=== PATIENT | female | born 1945 | race Caucasian/White ===

== ENCOUNTER 2018-05-24 21:30 | Emergency (ER) | payer MEDICARE, BC ==
--- OUTSIDE RECORDS SUMMARY | 2018-05-24 21:35 | XMS REPORT ---
:1945 External Reference #:[id number] Author Organization [facility] Address [address] [place] [address] [place] [address] Phone [phone] Care Team Providers Name Role Phone Mike Gates MD Primary Care Physician Unavailable Payers Type Date Identification Numbers Payment Provider Subscriber Medicare Primary Policy Number: [id number] Medicare Deepika Dinero PayID: [id number] [address] [place] [address] [facility] Policy Number: [id number] [facility] Deepika Dinero PayID: [id number] [address] [place] [address] Problems Date Description Provider Status Onset: 07/03/2012 Wrist joint pain Juan Che M.D. 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 Dog at home, no other pets. Lots of ticks on dog. Allergies, Adverse Reactions, Alerts Date Description Reaction Status Severity Comments 06/30/2012 Aspirin active 06/30/2012 Bactrim active 06/30/2012 Macrobid active 06/30/2012 Tetracyclines & Related active 06/30/2012 Macadamia Nuts active Medications Medication Date Status Form Strength Qnty SIG Indications Ordering Provider Evening [place] 0 Active Capsules 500mg prn Unknown Oil 000 Cod Liver Oil 0 Active Capsules 1 po qd Unknown 000 D3 0 Active Capsules 400Unit 1 every Unknown 000 day Multivitamins 0 Active Capsules 30caps 1 capsule Unknown 000 daily Restasis 00/00/0 Active Emulsion 0.05% 2units one gtts Unknown 000 ou bid Pataday Active Solution 0.2% 2.500m instill Unknown 000 l one drop into each eye daily Vital Signs Date Vital Result Comment 05/12/2018 Height 62.5 inches 5'2.50" Heart Rate 76 /min BP Systolic 100 mmHg BP Diastolic 64 mmHg Respiratory Rate 16 /min Pain Level 4 05/30/2017 Height 62.5 inches 5'2.50" Weight 125.00 lb Respiratory Rate 16 /min Pain Level 0 BMI (Body Mass Index) 22.5 kg/m2 05/29/2017 Height 62.5 inches 5'2.50" Weight 125.00 lb BP Systolic 122 mmHg BP Diastolic 78 mmHg Respiratory Rate 18 /min Body Temperature 98.2 F Pain Level 4 BMI (Body Mass Index) 22.5 kg/m2 03/24/2014 Height 62.5 inches 5'2.50" Weight 128.00 lb Heart Rate 75 /min BP Systolic 105 mmHg BP Diastolic 85 mmHg BMI (Body Mass Index) 23.0 kg/m2 07/03/2012 Weight 122.00 lb Heart Rate 84 /min BP Systolic 108 mmHg BP Diastolic 80 mmHg Respiratory Rate 16 /min Body Temperature 96.9 F Results Test Date Test Result H/L Range Note Urinalysis 11/26/2012 Urine Color Yellow Urine Appearance Clear Urine Specific [place] 1.010 1.010-1.030 Urine Esterase 2+ Negative Urine Nitrate Negative Negative Urine Urobilinogen Negative E.U./dL Negative Urine Protein Negative mg/dL Negative Urine pH 6.5 5-9 Urine Blood Negative Negative Urine Ketones Negative mg/dL Negative Urine Bilirubin Negative Negative Urine Glucose Negative mg/dL Negative Urine Microscopic 11/26/2012 Urine WBC 1+ (<10 /hpf) None Seen Urine RBC 1+ (<3 /hpf) None Seen Urine Epithelial Cells 1+ Squamous /hpf None Seen Urine Culture And Sensitivities 11/26/2012 Urine Culture (SEE NOTE) 1 1 RUN DATE: 11/28/12 [facility] LAB LIVE PAGE 1 RUN TIME: [address] [place] [id number] Specimen Inquiry Name: DEEPIKA DINERO : [address]: Anni Villanueva DO Acct: [id number] Unit: [id number] AGE: 67 Location: ED Re11/26/12 SEX: F Status: DEP ER SPEC: [id number] CHRISTINA: 11/26/12-13[address] [facility] [address]: Anni Villanueva DO REQ: [id number] RECD: 11/26/12 STATUS: KUN VASQUEZ DR: Macario Wolf MD _ SOURCE: URINE SPDESC: ORDERED: Urine Culture Procedure Result Verified Site Urine Culture Final 11/28/12- 930 ML Organism 1 NORMAL ALEJANDRO [place] Count 75-100,000 (Many) CFU/ML END OF REPORT * ML=Testing performed at Main Lab DEPARTMENT OF PATHOLOGY, [address] [place] [address] Jasiel Camargo M.D. Director [facility] Permit #[id number] Procedures Description No Information Encounters Type Date Location Provider CPT E/M Dx Office Visit 05/12/2018 [facility] [place] [address] M18.11 1:00p C.M.A. M18.12 M75.41 Office Visit 05/05/2018 11:30a [facility] [place] [address] B36.0 B07.8 L21.8 Office Visit 05/30/2017 10:30a [facility] [place] [address] M19.042 C.M.A. S63.602A M18.12 Office Visit 05/29/2017 2:30p [facility] [place] [address] M25.521 C.M.A. M19.042 S53.401A Office Visit 03/24/2014 1:15p [facility] [address] 735.0 C.M.A. M.D. Office Visit 07/03/2012 [facility] [address] 719.43 Infectious Diseases Shruthi Che Plan of Care 05/12/2018 - [facility] MDM18.11 Unil primary osteoarth of first carpometacarp joint, r handM18.12 Unil primary osteoarth of first carpometacarp joint, l handM75.41 Impingement syndrome of right shoulderNew Therapy:Physical TherapyFollow up:Follow up: 6 weeks
[2018-05-24 21:43] VITALS: BP 131/70
[2018-05-24] MEDS ORDERED: Ciprofloxacin TAB* 250 MG PO ONE (22:17)
--- NOTE | 2018-05-24 22:24 | UC ---
Complaint Female HPI - HPI Summary HPI Summary: 72 yo female on 2 1/2 days of amox for UTI still with some dysuria but decreased no back pain or vomiting here today because of myalgias/chills and ? fever multiple drugs allergies - History Of Current Complaint Chief Complaint: UCGeneralIllness Stated Complaint: BURNING URINATION Time Seen by Provider: 05/24/18 22:02 Hx Obtained From: Patient Hx Last Menstrual Period: post Onset/Duration: Gradual Onset, Lasting Days Timing: Constant Severity Initially: Mild Pain Intensity: 4 Pain Scale Used: 0-10 Numeric Character: Burning Aggravating Factor(s): Urination Alleviating Factor(s): Nothing Associated Signs And Symptoms: Positive: Fever - ? today. Negative: Back Pain, Vaginal Bleeding/Discharge, Vaginal Discharge, Nausea, Vomiting(# Of Episodes =) , Genital Swelling, Genital Blisters, Retained Foregin Body (Specify) - Allergies/Home Medications Allergies/Adverse Reactions: Allergies Allergy/AdvReac Type Severity Reaction Status Date / Time aspirin Allergy Runny Nose Verified 05/24/18 21:39 nitrofurantoin Allergy Rash Verified 05/24/18 21:39 [From Macrobid] sulfamethoxazole Allergy Rash Verified 05/24/18 21:39 [From Bactrim] tetracycline Allergy Rash Verified 05/24/18 21:39 trimethoprim [From Bactrim] Allergy Rash Verified 05/24/18 21:39 MACADAMIA NUTS Allergy Intermediate GI Uncoded 04/09/15 20:14 PMH/Surg Hx/FS Hx/Imm Hx Previously Healthy: Yes Other History Of: Negative For: Anticoagulant Therapy - Surgical History Surgical History: None - Family History Known Family History: Positive: Hypertension - Social History Alcohol Use: None Substance Use Type: None Smoking Status (MU): Former Smoker - Immunization History Most Recent Tetanus Shot: 2014 Review of Systems Constitutional: Fever - ?, Chills Skin: Negative Eyes: Negative ENT: Negative Respiratory: Negative Cardiovascular: Negative Gastrointestinal: Negative Genitourinary: Dysuria, Frequency, Urgency Motor: Negative Neurovascular: Negative Musculoskeletal: Negative Neurological: Negative Psychological: Negative Is Patient Immunocompromised?: No All Other Systems Reviewed And Are Negative: Yes Physical Exam Triage Information Reviewed: Yes Appearance: Well-Appearing, No Pain Distress, Well-Nourished Vital Signs: Initial Vital Signs Temp 99.1 F 05/24/18 21:38 Pulse 103 05/24/18 21:38 Resp 16 05/24/18 21:38 BP 131/70 05/24/18 21:38 Pulse Ox 96 05/24/18 21:38 Eye Exam: Normal ENT: Positive: Hearing grossly normal. Negative: Nasal congestion, Nasal drainage, Trismus, Muffled voice, Hoarse voice Neck: Positive: Supple, Nontender Respiratory: Positive: Lungs clear, Normal breath sounds, No respiratory distress, No accessory muscle use Cardiovascular: Positive: RRR, No Murmur, Pulses Normal Abdomen Description: Positive: Nontender, No Organomegaly, Soft. Negative: CVA Tenderness (R), CVA Tenderness (L) Bowel Sounds: Positive: Present Musculoskeletal: Positive: ROM Intact, No Edema Neurological: Positive: Alert Psychological Exam: Normal Skin Exam: Normal Diagnostics - Laboratory Diagnostic Studies Completed/Ordered: +RBC, tr leuk on UA Complaint Female Dx - Course Course Of Treatment: culture result from 05/16 reviewed - Differential Dx/Diagnosis Provider Diagnoses: UTI Discharge - Sign-Out/Discharge Documenting (check all that apply): Patient Departure All imaging exams completed and their final reports reviewed: No Studies - Discharge Plan Condition: Stable Disposition: HOME Prescriptions: Ciprofloxacin HCl [Cipro] 250 mg PO BID #5 tablet Patient Education Materials: Urinary Tract Infection in Women (DC) Referrals: Mike Gates MD [Primary Care Provider] - 3 Days Additional Instructions: recheck sooner for new or worsening symptoms a urine culture is pending - Billing Disposition and Condition Condition: STABLE Disposition: Home
--- NOTE | 2018-05-25 10:33 | UC ---
- Progress Note Progress Note: 05/25/2018 Pt's was Rx ciprofloxacin 250mg PO BID x 3 days and sent to [facility]. Pt called back stating Pharmacy is closed today. Rx for Ciprofloxacin PO sent to [facility] as per Pt's request. Please called back [facility] pharmacy to stop Medication. 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 Thank you Elsie Lee PA-C Discharge - Sign-Out/Discharge Documenting (check all that apply): Patient Departure - D/c home All imaging exams completed and their final reports reviewed: No Studies - Discharge Plan Condition: Stable Disposition: HOME Prescriptions: Ciprofloxacin TAB* [Cipro 250 MG Tab*] 250 mg PO BID #5 tab Patient Education Materials: Urinary Tract Infection in Women (DC) Referrals: Mike Gates MD [Primary Care Provider] - 3 Days Additional Instructions: recheck sooner for new or worsening symptoms a urine culture is pending - Billing Disposition and Condition Condition: STABLE Disposition: Home
--- NOTE | 2018-05-26 19:44 | UC ---
- Progress Note Progress Note: urine cultureL Enterocateriacae - ? contaimination pt on MAcrobid no change Discharge - Sign-Out/Discharge Documenting (check all that apply): Post-Discharge Follow Up All imaging exams completed and their final reports reviewed: No Studies - Discharge Plan Condition: Stable Disposition: HOME Prescriptions: Ciprofloxacin TAB* [Cipro 250 MG Tab*] 250 mg PO BID #5 tab Patient Education Materials: Urinary Tract Infection in Women (DC) Referrals: Mike Gates MD [Primary Care Provider] - 3 Days Additional Instructions: recheck sooner for new or worsening symptoms a urine culture is pending - Billing Disposition and Condition Condition: STABLE Disposition: Home
== END 2018-05-24 22:25 | disposition home or self-care (01) ==
LOC: UCEAST 21:30
DX: N39.0 Urinary tract infection, site not specified (principal); M79.1 Myalgia; R68.83 Chills (without fever); Z88.2 Allergy status to sulfonamides; Z88.6 Allergy status to analgesic agent; Z88.1 Allergy status to other antibiotic agents; Z91.018 Allergy to other foods; Z87.891 Personal history of nicotine dependence
CPT/HCPCS: 81003; 87086; 99212; A9270-GY; G0463

== ENCOUNTER 2023-12-02 07:27 | Inpatient (IN) ==
[2023-12-02] MEDS: Ondansetron 4 mg VIAL 2 MG/ML 2 ml VIAL IV ONE (08:02)
[2023-12-02] MEDS: Lactated Ringers 1000 ml BAG 1,000 ML IV ONE (08:02)
[2023-12-02 08:11] LABS: ABS Lymphocytes 0.2 10^3/uL (1.0-4.8); ABS Monocytes 0.3 10^3/uL (0.0-0.9); ABS Neutrophils 14.4 10^3/uL (1.5-7.6); Eosinophil % 0.1 %; Hematocrit 43.7 % (35-45); Hemoglobin 14.4 g/dL (11.5-14.3); Lymphocyte % 1.6 %; Mean Corpuscular Hemoglobin 30.2 pg (27-33); Mean Corpuscular Volume 91.5 fL (80-97); Mean Platelet Volume 7.5 fL (7.5-11.2); Platelet Count 260 10^3/uL (150-450); Red Blood Count 4.78 10^6/uL (3.63-4.92); Red Cell Distribution Width 13.4 % (12-17)
[2023-12-02 09:05] LABS: ALT 17 U/L (7-52); Albumin 4.4 g/dL (3.2-5.2); Albumin/Globulin Ratio 1.5 (1-3); Alkaline Phosphatase 62 U/L (35-149); Anion Gap 13 mmol/L (2-16); Blood Urea Nitrogen 14 mg/dL (6-24); C Reactive Protein 6.89 mg/L (<8.01); CO2 Carbon Dioxide 30 mmol/L (22-32); Calcium 9.8 mg/dL (8.6-10.3); Chloride 95 mmol/L (101-111); Creatinine, Serum 0.75 mg/dL (0.51-0.95); Globulin 2.9 g/dL (2-4); Glucose 166 mg/dL (70-100); Lipase 15 U/L (11.0-82.0); Sodium 138 mmol/L (135-145); Total Bilirubin 0.6 mg/dL (0.2-1.0); Total Protein 7.3 g/dL (6.4-8.9); eGFR CKD-EPI 81.4 (>60)
[2023-12-02] MEDS: Iohexol 350 (CONTRAST) 500 ML MDV IV ONE (09:40)
[2023-12-02] MEDS: Diatrizoate Meg/Sod(CONTRAST) 30 ML ORAL.SOLN PO ONE (12:16)
[2023-12-02] MEDS: Ondansetron 4 mg VIAL 2 MG/ML 2 ml VIAL IV PRN (14:15)
[2023-12-02] MEDS: Lactated Ringers 1000 ml BAG 1,000 ML IV SCH (15:11)
[2023-12-02] MEDS: Prochlorperazine 5 mg/ml 2 ml VIAL (10 mg) IV PRN (15:12)
[2023-12-03] MEDS: Pantoprazole VIAL 40 MG VIAL IV ONE (00:02)
[2023-12-03 00:39] LABS: Potassium Redraw 3.7 mmol/L (3.5-5.0)
[2023-12-03] MEDS: Lactated Ringers 1000 ml BAG 1,000 ML IV ONE (04:32)
[2023-12-03 07:16] LABS: Calcium 9.4 mg/dL (8.6-10.3); Creatinine, Serum 0.82 mg/dL (0.51-0.95); Potassium 3.6 mmol/L (3.5-5.0); eGFR CKD-EPI 73.2 (>60)
[2023-12-03 07:37] LABS: ABS Lymphocytes 0.4 10^3/uL (1.0-4.8); ABS Monocytes 0.6 10^3/uL (0.0-0.9); ABS Neutrophils 6.8 10^3/uL (1.5-7.6); Hematocrit 43.1 % (35-45); Hemoglobin 14.4 g/dL (11.5-14.3); Lymphocyte % 5.7 %; Mean Corpuscular Hemoglobin 30.5 pg (27-33); Mean Corpuscular Hgb Conc 33.4 g/dL (31-36); Mean Corpuscular Volume 91.4 fL (80-97); Mean Platelet Volume 8.4 fL (7.5-11.2); Platelet Count 249 10^3/uL (150-450); Red Blood Count 4.71 10^6/uL (3.63-4.92); Red Cell Distribution Width 13.7 % (12-17); White Blood Count 7.8 10^3/uL (3.8-11.8)
[2023-12-03] MEDS: Pantoprazole VIAL 40 MG VIAL IV SCH (17:24)
[2023-12-03] MEDS: Lactated Ringers 1000 ml BAG 1,000 ML IV SCH (17:24)
[2023-12-04 06:38] LABS: ABS Basophils 0.1 10^3/uL (0.0-0.1); ABS Lymphocytes 1.2 10^3/uL (1.0-4.8); ABS Monocytes 0.6 10^3/uL (0.0-0.9); ABS Neutrophils 4.7 10^3/uL (1.5-7.6); ABS Nucleated RBC 0.01 10^3/ul; Eosinophil % 0.5 %; Hematocrit 38.6 % (35-45); Hemoglobin 12.9 g/dL (11.5-14.3); Lymphocyte % 18.6 %; Mean Corpuscular Hemoglobin 30.5 pg (27-33); Mean Corpuscular Hgb Conc 33.4 g/dL (31-36); Mean Corpuscular Volume 91.4 fL (80-97); Mean Platelet Volume 7.6 fL (7.5-11.2); Nucleated Red Blood Cells % 0.1 %/100WBC (0.0-0.8); Platelet Count 222 10^3/uL (150-450); Red Blood Count 4.22 10^6/uL (3.63-4.92); Red Cell Distribution Width 13.6 % (12-17); White Blood Count 6.6 10^3/uL (3.8-11.8)
[2023-12-04 06:52] LABS: Calcium 8.6 mg/dL (8.6-10.3); Creatinine, Serum 0.79 mg/dL (0.51-0.95); Potassium 3.4 mmol/L (3.5-5.0); eGFR CKD-EPI 76.5 (>60)
[2023-12-04] MEDS: KCL 20 MEQ/100 ML IVPREMIX 20 MEQ/100 ML BAG IV ONE (09:21)
[2023-12-04 09:53] LABS: Magnesium 2.1 mg/dL (1.9-2.7)
[2023-12-04] MEDS: Oral Rinse (Biotene)(NF) 237 ML or 473 ML ORAL RINSE BTL MT SCH (18:15)
[2023-12-05 10:32] LABS: Calcium 8.4 mg/dL (8.6-10.3); Creatinine, Serum 0.68 mg/dL (0.51-0.95); Magnesium 2.1 mg/dL (1.9-2.7); Potassium 3.7 mmol/L (3.5-5.0); eGFR CKD-EPI 89.1 (>60)
[2023-12-05] MEDS ORDERED: Lidocaine 1% w EPI 1:200,000 SDV 30 ML VIAL ONE (16:05)
[2023-12-05] MEDS ORDERED: Bupivacaine 0.25% SDV 30 ML ONE (16:05)
[2023-12-05] MEDS ORDERED: Midazolam 2 mg/2 ml VIAL 1 mg/ml 2 ml VIAL (2 mg) ONE (16:34)
[2023-12-05] MEDS ORDERED: Rocuronium 50 mg VIAL 10 mg/ml 5 ml VIAL (50 mg) ONE ×3 (17:13→17:42)
[2023-12-05] MEDS ORDERED: fentaNYL 100 mcg/2 ml 50 MCG/ML VIAL ONE ×3 (17:19→20:46)
[2023-12-05] MEDS ORDERED: Naloxone 0.4 mg VIAL 0.4 mg/ml 1 ml VIAL IV PUSH PRN (19:56)
[2023-12-05] MEDS ORDERED: Zosyn per Pharmacy NOTE FOLLOW UP SCH (20:00)
[2023-12-05] MEDS ORDERED: Naloxone 0.4 mg VIAL 0.4 mg/ml 1 ml VIAL IV PRN (20:32)
[2023-12-05] MEDS: fentaNYL 100 mcg/2 ml 50 MCG/ML VIAL IV PRN (20:47)
[2023-12-05] MEDS ORDERED: Ondansetron 4 mg VIAL 2 MG/ML 2 ml VIAL ONE (20:49)
[2023-12-05] MEDS: Ondansetron 4 mg VIAL 2 MG/ML 2 ml VIAL IV PRN (20:51)
[2023-12-05] MEDS: HYDROmorphone PCA 20 MG/20 ML PCA.SYRING PCA SCH (23:15)
[2023-12-06] MEDS: Piperacillin/Tazobac 3.375 BAG 3.375 GM/100 ML BAG IV ONE (00:24)
[2023-12-06] MEDS: ZOSYN 3.375 GM Q8H per EXTENDED INFUSION IV SCH (06:13)
[2023-12-06 08:06] LABS: ABS Lymphocytes 0.4 10^3/uL (1.0-4.8); ABS Monocytes 0.4 10^3/uL (0.0-0.9); ABS Neutrophils 10.7 10^3/uL (1.5-7.6); Hematocrit 40.8 % (35-45); Hemoglobin 13.5 g/dL (11.5-14.3); Lymphocyte % 3.7 %; Mean Corpuscular Hemoglobin 30.6 pg (27-33); Mean Corpuscular Hgb Conc 33.1 g/dL (31-36); Mean Corpuscular Volume 92.4 fL (80-97); Platelet Count 204 10^3/uL (150-450); Red Blood Count 4.42 10^6/uL (3.63-4.92); Red Cell Distribution Width 13.6 % (12-17); White Blood Count 11.6 10^3/uL (3.8-11.8)
[2023-12-06 08:47] LABS: Calcium 7.8 mg/dL (8.6-10.3); Creatinine, Serum 0.71 mg/dL (0.51-0.95); Potassium 3.8 mmol/L (3.5-5.0)
[2023-12-06] MEDS: D5W 1/2 NS KCl 20 meq 1000 ml 1,000 ML IV SCH (10:10)
[2023-12-06] MEDS: Enoxaparin 40 MG/0.4 ML SYR SUBCUT SCH (10:18)
[2023-12-06] MEDS: Acetaminophen IV 1 GM/100ML 1,000 MG/100 ML BAG IV SCH (10:30)
[2023-12-07 05:51] LABS: ABS Monocytes 0.5 10^3/uL (0.0-0.9); ABS Neutrophils 12.8 10^3/uL (1.5-7.6); ABS Nucleated RBC 0.02 10^3/ul; Eosinophil % 0.1 %; Hematocrit 39.5 % (35-45); Hemoglobin 13.1 g/dL (11.5-14.3); Lymphocyte % 6.7 %; Mean Corpuscular Hemoglobin 30.4 pg (27-33); Mean Corpuscular Hgb Conc 33.2 g/dL (31-36); Mean Corpuscular Volume 91.8 fL (80-97); Mean Platelet Volume 8.4 fL (7.5-11.2); Nucleated Red Blood Cells % 0.1 %/100WBC (0.0-0.8); Platelet Count 228 10^3/uL (150-450); Red Cell Distribution Width 13.6 % (12-17); White Blood Count 14.3 10^3/uL (3.8-11.8)
[2023-12-07 06:43] LABS: Calcium 7.5 mg/dL (8.6-10.3); Creatinine, Serum 0.61 mg/dL (0.51-0.95); Potassium 3.9 mmol/L (3.5-5.0); eGFR CKD-EPI 91.5 (>60)
[2023-12-07] MEDS: ceFOXitin 2 GM PREMIX 50 ML IVPB ONE (07:50)
[2023-12-08 06:45] LABS: ABS Eosinophils 0.1 10^3/uL (0.0-0.5); ABS Lymphocytes 0.9 10^3/uL (1.0-4.8); ABS Monocytes 0.3 10^3/uL (0.0-0.9); ABS Neutrophils 12.8 10^3/uL (1.5-7.6); Eosinophil % 0.4 %; Hematocrit 38.5 % (35-45); Hemoglobin 12.8 g/dL (11.5-14.3); Lymphocyte % 6.6 %; Mean Corpuscular Hemoglobin 30.3 pg (27-33); Mean Corpuscular Hgb Conc 33.2 g/dL (31-36); Mean Corpuscular Volume 91.3 fL (80-97); Mean Platelet Volume 8.2 fL (7.5-11.2); Platelet Count 222 10^3/uL (150-450); Red Blood Count 4.22 10^6/uL (3.63-4.92); Red Cell Distribution Width 13.7 % (12-17); White Blood Count 14.2 10^3/uL (3.8-11.8)
[2023-12-08 06:47] LABS: Calcium 7.2 mg/dL (8.6-10.3); Creatinine, Serum 0.67 mg/dL (0.51-0.95); Magnesium 1.7 mg/dL (1.9-2.7); Potassium 3.6 mmol/L (3.5-5.0); eGFR CKD-EPI 89.4 (>60)
[2023-12-08] MEDS: Magnesium Sulfate 2 gm BAG 2 GM/50 ML BAG IVPB ONE (09:53)
[2023-12-08] MEDS: KCL 20 MEQ/100 ML IVPREMIX 20 MEQ/100 ML BAG IV ONE (09:53)
[2023-12-08 12:32] LABS: Anion Gap 3 mmol/L (2-16); Blood Urea Nitrogen 10 mg/dL (6-24); CO2 Carbon Dioxide 29 mmol/L (22-32); Calcium 7.2 mg/dL (8.6-10.3); Chloride 104 mmol/L (101-111); Creatinine, Serum 0.71 mg/dL (0.51-0.95); Glucose 126 mg/dL (70-100); Potassium 3.6 mmol/L (3.5-5.0); Prealbumin 8 mg/dL (18-38); Sodium 136 mmol/L (135-145)
[2023-12-08 12:35] LABS: ALT 12 U/L (7-52); AST 13 U/L (13-39); Albumin 2.7 g/dL (3.2-5.2); Albumin/Globulin Ratio 1.4 (1-3); Alkaline Phosphatase 55 U/L (35-149); Cholesterol 85 mg/dL; Magnesium 2.5 mg/dL (1.9-2.7); Phosphorus < 1.0 mg/dL (2.5-5.0); Total Bilirubin 0.6 mg/dL (0.2-1.0); Total Protein 4.7 g/dL (6.4-8.9); Triglycerides 84 mg/dL
[2023-12-08] MEDS: NS 0.9% IVPB ONE (15:47)
[2023-12-08] MEDS: POTASSIUM PHOSPHATE IVPB ONE (15:47)
[2023-12-08] MEDS: TPN 24 HR with Dextrose 40% Water 625 ML, Amino Acid Infusion 10% 850 ML, Sterile Water... CENT\\PICC SCH (17:54)
[2023-12-09 00:17] LABS: Calcium 7.4 mg/dL (8.6-10.3); Creatinine, Serum 0.6 mg/dL (0.51-0.95); Phosphorus 1.6 mg/dL (2.5-5.0); eGFR CKD-EPI 91.8 (>60)
[2023-12-09] MEDS: Potassium Phosphate IV 10 MMOL in NS 0.9% 250 ml 250 ML IVPB ONE (03:41)
[2023-12-09 06:55] LABS: Albumin 2.6 g/dL (3.2-5.2); Albumin/Globulin Ratio 1.3 (1-3); Calcium 6.9 mg/dL (8.6-10.3); Creatinine, Serum 0.49 mg/dL (0.51-0.95); Magnesium 1.8 mg/dL (1.9-2.7); Phosphorus 1.5 mg/dL (2.5-5.0); Potassium 3.7 mmol/L (3.5-5.0); Total Bilirubin 0.5 mg/dL (0.2-1.0); Total Protein 4.6 g/dL (6.4-8.9); eGFR CKD-EPI 96.4 (>60)
[2023-12-09] MEDS ORDERED: HYDROmorphone 0.5 MG/0.5 ML SYRINGE IV SLOW PU PRN (11:50)
[2023-12-09] MEDS: TPN 24 HR with Dextrose 40% Water 625 ML, Amino Acid Infusion 10% 850 ML, Sterile Water... CENT\\PICC SCH ×2 (13:16→18:29)
[2023-12-09] MEDS: Magnesium Sulf 4 GM/100 ML IV 4,000 MG/100 ML BAG IVPB ONE (13:17)
[2023-12-10 05:19] LABS: ABS Eosinophils 0.1 10^3/uL (0.0-0.5); ABS Lymphocytes 0.7 10^3/uL (1.0-4.8); ABS Monocytes 0.6 10^3/uL (0.0-0.9); ABS Neutrophils 9.3 10^3/uL (1.5-7.6); Eosinophil % 1.4 %; Hematocrit 35.7 % (35-45); Hemoglobin 12.1 g/dL (11.5-14.3); Lymphocyte % 6.4 %; Mean Corpuscular Hemoglobin 30.5 pg (27-33); Mean Corpuscular Hgb Conc 33.9 g/dL (31-36); Mean Platelet Volume 7.7 fL (7.5-11.2); Platelet Count 243 10^3/uL (150-450); Red Blood Count 3.97 10^6/uL (3.63-4.92); Red Cell Distribution Width 13.6 % (12-17); White Blood Count 10.8 10^3/uL (3.8-11.8)
[2023-12-10 06:17] LABS: Albumin 2.6 g/dL (3.2-5.2); Albumin/Globulin Ratio 1.2 (1-3); Calcium 7.2 mg/dL (8.6-10.3); Creatinine, Serum 0.47 mg/dL (0.51-0.95); Globulin 2.1 g/dL (2-4); Magnesium 2.2 mg/dL (1.9-2.7); Phosphorus 1.7 mg/dL (2.5-5.0); Potassium 3.9 mmol/L (3.5-5.0); Total Bilirubin 0.3 mg/dL (0.2-1.0); Total Protein 4.7 g/dL (6.4-8.9); eGFR CKD-EPI 97.4 (>60)
[2023-12-10] MEDS: Potassium Phosphate IV 10 MMOL in NS 0.9% 250 ml 250 ML IVPB ONE (10:04)
[2023-12-10] MEDS: TPN 24 HR with Dextrose 40% Water 625 ML, Amino Acid Infusion 10% 850 ML, Sterile Water... CENT\\PICC SCH (10:34)
[2023-12-10] MEDS: TPN 24 HR with Dextrose 70% Water 357 ML, Amino Acid Infusion 10% 850 ML, Sterile Water... TPN SCH (16:56)
[2023-12-11 09:22] LABS: Albumin 2.7 g/dL (3.2-5.2); Albumin/Globulin Ratio 1.2 (1-3); Calcium 7.6 mg/dL (8.6-10.3); Creatinine, Serum 0.39 mg/dL (0.51-0.95); Globulin 2.2 g/dL (2-4); Phosphorus 2.1 mg/dL (2.5-5.0); Potassium 4.3 mmol/L (3.5-5.0); Total Bilirubin 0.3 mg/dL (0.2-1.0); Total Protein 4.9 g/dL (6.4-8.9); eGFR CKD-EPI 101.9 (>60)
[2023-12-12 05:36] LABS: ABS Eosinophils 0.3 10^3/uL (0.0-0.5); ABS Monocytes 0.9 10^3/uL (0.0-0.9); ABS Neutrophils 11.8 10^3/uL (1.5-7.6); Eosinophil % 1.9 %; Hematocrit 33.8 % (35-45); Hemoglobin 11.3 g/dL (11.5-14.3); Lymphocyte % 7.4 %; Mean Corpuscular Hemoglobin 30.2 pg (27-33); Mean Corpuscular Hgb Conc 33.4 g/dL (31-36); Mean Corpuscular Volume 90.5 fL (80-97); Mean Platelet Volume 7.6 fL (7.5-11.2); Platelet Count 311 10^3/uL (150-450); Red Blood Count 3.73 10^6/uL (3.63-4.92); Red Cell Distribution Width 13.7 % (12-17)
[2023-12-12 06:04] LABS: Calcium 7.9 mg/dL (8.6-10.3); Creatinine, Serum 0.42 mg/dL (0.51-0.95); Magnesium 1.9 mg/dL (1.9-2.7); Phosphorus 2.9 mg/dL (2.5-5.0); Potassium 4.5 mmol/L (3.5-5.0); eGFR CKD-EPI 100.1 (>60)
[2023-12-12 10:14] VITALS: BP 127/74
== END 2023-12-12 13:45 | disposition home or self-care (01) | DRG 336 ==
LOC: ED 07:27 → EDHOLD 10:34 → SUATTDRO 10:34 → MED 14:07 → SSU 12-05 18:44
PROVIDERS: ADMIT Hospitalist; ATTEND Hospitalist

== ENCOUNTER 2024-01-27 22:45 | Inpatient (IN) ==
[2024-01-28] MEDS: Ondansetron 4 mg VIAL 2 MG/ML 2 ml VIAL IV ONE (00:04)
[2024-01-28] MEDS: Lactated Ringers 1000 ml BAG 1,000 ML IV ONE ×4 (00:04→14:07)
[2024-01-28 00:19] LABS: ABS Basophils 0.1 10^3/uL (0.0-0.1); ABS Lymphocytes 0.6 10^3/uL (1.0-4.8); ABS Monocytes 0.3 10^3/uL (0.0-0.9); ABS Neutrophils 18.1 10^3/uL (1.5-7.6); ABS Nucleated RBC 0.02 10^3/ul; Hematocrit 42.2 % (35-45); Hemoglobin 13.8 g/dL (11.5-14.3); Lymphocyte % 3.3 %; Mean Corpuscular Hemoglobin 29.1 pg (27-33); Mean Corpuscular Hgb Conc 32.6 g/dL (31-36); Mean Corpuscular Volume 89.1 fL (80-97); Mean Platelet Volume 8.4 fL (7.5-11.2); Nucleated Red Blood Cells % 0.1 %/100WBC (0.0-0.8); Platelet Count 345 10^3/uL (150-450); Red Blood Count 4.74 10^6/uL (3.63-4.92); Red Cell Distribution Width 14.7 % (12-17); White Blood Count 19.2 10^3/uL (3.8-11.8)
[2024-01-28 00:40] LABS: Albumin 4.7 g/dL (3.2-5.2); Albumin/Globulin Ratio 1.4 (1-3); C Reactive Protein 3.28 mg/L (<8.01); Creatinine, Serum 0.74 mg/dL (0.51-0.95); Globulin 3.3 g/dL (2-4); Potassium 3.8 mmol/L (3.5-5.0); Total Bilirubin 0.8 mg/dL (0.2-1.0); eGFR CKD-EPI 82.8 (>60)
[2024-01-28] MEDS: Iohexol 300 (CONTRAST) 10 ML SDV IV ONE (01:28)
[2024-01-28 02:43] LABS: Urine Appearance Turbid; Urine Bilirubin Negative (Negative); Urine Blood Negative (Negative); Urine Color Colorless; Urine Glucose Negative (Negative); Urine Ketones Negative (Negative); Urine Nitrite Negative (Negative); Urine Protein Negative (Negative); Urine Specific Gravity 1.023 (1.002-1.030); Urine Urobilinogen Negative (Negative)
[2024-01-28 02:55] LABS: Urine Bacteria Absent /HPF (Absent); Urine Red Blood Cell Trace(0-2/hpf) /HPF (0-Trace); Urine Squamous Epithelial Cell Present /HPF (Absent); Urine White Blood Cell 1+(6-10/hpf) /HPF (0-Trace)
[2024-01-28] MEDS ORDERED: Zosyn per Pharmacy NOTE FOLLOW UP SCH (05:00)
[2024-01-28] MEDS ORDERED: Ondansetron 4 mg VIAL 2 MG/ML 2 ml VIAL IV PRN (06:41)
[2024-01-28 08:49] LABS: Hematocrit 35.4 % (35-45); Hemoglobin 11.5 g/dL (11.5-14.3); Mean Corpuscular Hemoglobin 29.1 pg (27-33); Mean Corpuscular Hgb Conc 32.4 g/dL (31-36); Mean Corpuscular Volume 89.7 fL (80-97); Platelet Count 275 10^3/uL (150-450); Red Blood Count 3.94 10^6/uL (3.63-4.92); Red Cell Distribution Width 14.7 % (12-17); White Blood Count 15.2 10^3/uL (3.8-11.8)
[2024-01-28] MEDS ORDERED: Acetaminophen IV 1 GM/100ML 1,000 MG/100 ML BAG IV PRN (09:10)
[2024-01-28] MEDS: Piperacillin/Tazobac 3.375 BAG 3.375 GM/100 ML BAG IV ONE (13:30)
[2024-01-28] MEDS: ZOSYN 3.375 GM IV (16:50)
[2024-01-28] MEDS: X ONE IV (16:50)
[2024-01-28] MEDS: ZOSYN 3.375 GM Q8H per EXTENDED INFUSION IV SCH (21:32)
[2024-01-29] MEDS: NS 0.9% 1000 ml BAG 1,000 ML IV SCH (01:24)
[2024-01-29 05:32] LABS: ABS Basophils 0.1 10^3/uL (0.0-0.1); ABS Eosinophils 0.2 10^3/uL (0.0-0.5); ABS Lymphocytes 1.4 10^3/uL (1.0-4.8); ABS Monocytes 0.5 10^3/uL (0.0-0.9); ABS Neutrophils 7.6 10^3/uL (1.5-7.6); ABS Nucleated RBC 0.01 10^3/ul; Eosinophil % 2.3 %; Hematocrit 34.8 % (35-45); Hemoglobin 11.4 g/dL (11.5-14.3); Lymphocyte % 14.5 %; Mean Corpuscular Hemoglobin 29.7 pg (27-33); Mean Corpuscular Hgb Conc 32.9 g/dL (31-36); Mean Corpuscular Volume 90.4 fL (80-97); Mean Platelet Volume 7.8 fL (7.5-11.2); Nucleated Red Blood Cells % 0.1 %/100WBC (0.0-0.8); Platelet Count 243 10^3/uL (150-450); Red Blood Count 3.85 10^6/uL (3.63-4.92); Red Cell Distribution Width 14.2 % (12-17); White Blood Count 9.8 10^3/uL (3.8-11.8)
[2024-01-29 05:52] LABS: Calcium 8.4 mg/dL (8.6-10.3); Creatinine, Serum 0.69 mg/dL (0.51-0.95); Magnesium 1.9 mg/dL (1.9-2.7); Potassium 3.5 mmol/L (3.5-5.0); eGFR CKD-EPI 88.8 (>60)
[2024-01-29 14:09] VITALS: BP 125/89
== END 2024-01-29 18:20 | disposition home or self-care (01) | DRG 388 ==
LOC: ED 22:45 → EDHOLD 22:45 → SUATTDRO 01-28 02:36 → SSU 01-28 05:08
PROVIDERS: ADMIT Student in an Organized Health Care Education/Training Program; ATTEND Internal Medicine